=== PATIENT | male | born 1980 | race Caucasian/White ===

== ENCOUNTER 2018-06-01 17:52 | Emergency (ER) | payer MEDICAID ==
[~2018-06-01] VITALS: Ht 170.2 cm; Wt 94.5 kg
[2018-06-01] MEDS ORDERED: morphine 4 MG/ML inj SYRINge IM ONE (18:40)
[2018-06-01] MEDS ORDERED: ketorolac trometh inj. 60 MG/2 ML VIAL IM ONE (18:40)
[2018-06-01] MEDS ORDERED: HYDROcodone/acetaminophen 10/325mg tab PO ONE (18:40)
[2018-06-01 18:52] VITALS: BP 168/91
[2018-06-01] MEDS ORDERED: HYDR-4353 PO (18:57)
--- NOTE | 2018-06-01 19:29 | NUR ---
Patient reports improvement of pain. Dr. Wallis notified and discharge papers being printed.
== END 2018-06-01 19:37 | disposition home or self-care (01) ==
LOC: ER 17:53
DX: T81.89XA Other complications of procedures, not elsewhere classified, initial encounter (principal); G89.18 Other acute postprocedural pain; F17.200 Nicotine dependence, unspecified, uncomplicated; F12.90 Cannabis use, unspecified, uncomplicated; Z88.2 Allergy status to sulfonamides
CPT/HCPCS: 96372; 99283; J1885; J2270